=== PATIENT | female | born 1950 | race Caucasian/White ===

== ENCOUNTER 2021-09-29 14:10 | Emergency (ER) | payer MEDICARE, SELFPAY ==
--- NOTE | ~2021-09-29 | XR_ITS ---
EXAMINATION: XR knee RT min 4V DATE: 09/29/2021 15:01 INDICATION: Chronic right knee pain. TECHNIQUE: 5 views of right knee were obtained. COMPARISON: None. FINDINGS: There is lateral subluxation of patella. No fracture. There is severe osteoarthritis of pat ellofemoral compartment and mild osteoarthritis of medial and lateral compartments. There is chondroc alcinosis of the menisci. No knee joint effusion. IMPRESSION: 1. Severe right knee osteoarthritis. Reviewed, dictated and finalized at location E. T MANAGER
[2021-09-29 14:22] VITALS: BP 172/68; PULSE 77; RESP 20; TEMP 36.8; O2SAT 96
--- NOTE | 2021-09-29 14:44 | ED.EXTPRO ---
HPI - Extremity Problem General Chief complaint: Extremity Problem,Nontraumatic Stated complaint: Right Leg Pain Time Seen by Provider: 09/29/21 14:44 Source: patient and family History of Present Illness HPI Narrative: PATIENT PRESENTS WITH RIGHT KNEE PAIN. PATIENT STATES SHE HAS A HISTORY OF ARTHRITIS. PATIENT WAS GETTING UP OFF OF THE TOILET THIS AM AND FELT A SHARP PAIN IN HER KNEE. NO RECOLLECTION OF INJURY TO KNEE. Related Data Home Medications Medication Instructions Recorded Confirmed calcium carbonate-vitamin D3 [All tablet PO 09/29/21 Day Calcium] diclofenac sodium 75 mg PO BID 09/29/21 09/29/21 fenofibrate 100 mg PO DAILY 09/29/21 09/29/21 fluoxetine 20 mg PO DAILY 09/29/21 09/29/21 hydrochlorothiazide 12.5 mg PO DAILY 09/29/21 09/29/21 irbesartan 300 mg PO DAILY 09/29/21 09/29/21 Allergies Allergy/AdvReac Type Severity Reaction Status Date / Time Sulfa (Sulfonamide Allergy Unknown Verified 09/29/21 14:43 Antibiotics) Review of Systems Review of Systems: CONSTITUTIONAL: Denies fever, chills, or sweats. EYES: Denies visual changes, redness, or discharge. ENT: Denies rhinorrhea, congestion, sore throat, or otalgia. CARDIOVASCULAR: Denies chest pain, palpitations, or edema. RESPIRATORY: Denies cough or dyspnea. GASTROINTESTINAL: Denies abdominal pain, nausea, vomiting, or diarrhea. GENITOURINARY: Denies dysuria or hematuria. SKIN: Denies rash or itching. MUSCULOSKELETAL: Denies back pain, joint pain, or myalgia. NEUROLOGIC: Denies headache, numbness, or weakness. PSYCHIATRIC: Denies anxiety or depression. PMFSH Comments At time of signature, agree with nursing past medical, surgical, social and family history. There is no relevant family history pertinent to the presenting complaint Exam Narrative: GENERAL: Well-appearing, well-nourished, and in no acute distress. HEAD: Normocephalic, atraumatic. EYES: PERRLA and EOMI. ENT: Nares clear, no rhinorrhea or epistaxis. Mucous membranes moist. NECK: Supple. CHEST: Clear to auscultation. No respiratory distress. HEART: Regular rate and rhythm. No murmur heard. Normal peripheral pulses. ABDOMEN: Soft, nontender, nondistended, normal active bowel sounds. EXTREMITIES: Normal range of motion. No edema. SKIN INTACT. NO DEFORMITY. NORMAL ROM, HAS FULL EXTENSION AND FLEXION. COMPARTMENTS SOFT. NEGATIVE ANTERIOR, POSTERIOR DRAWER SIGNS ON TEST. NO CREPITUS. DP PULSE, NORMAL CAPILLARY REFILL MCMURRAYS, PAIN TO RIGHT MEDIAL AND DISTAL KNEE WITH KNEE FLEXION, INTERNAL AND EXTERNAL FOOT ROTATION.NO ERYTHEMA OR INCREASED WARMTH TO CALF. . SKIN: Warm, dry, no rash. NEURO: No focal deficits. Alert and oriented x3. [place] Coma Scale Eye Opening: Spontaneous 4 [place] Coma Scale Motor: Obeys Commands 6 [place] Coma Scale Verbal: Oriented 5 Marvin Coma Scale Total 15 Course Course Level of Care: Express Care Visit Vital Signs Vital signs: Vital Signs Temperature 36.8 C 09/29/21 14:22 Pulse Rate 77 09/29/21 14:22 Respiratory Rate 20 09/29/21 14:22 Blood Pressure 172/68 H 09/29/21 14:22 Pulse Oximetry 96 09/29/21 14:22 Temperature 36.8 C 09/29/21 14:22 Pulse Rate 77 09/29/21 14:22 Respiratory Rate 20 09/29/21 14:22 Blood Pressure 172/68 H 09/29/21 14:22 Pulse Oximetry 96 09/29/21 14:22 Addressed elevated BP today. Today's blood pressure higher than recommended range. Discussed importance of follow -up with PCP and possible skilled nursing effects/cardiovascular events related to HTN. Currently patient denies headache, dizziness, vision changes, CP or shortness of breath. DISCUSSED WITH PATIENT, X-RAY FINDINGS AND THAT X-RAYS WERE NEGATIVE FOR FRACTURE OR DISLOCATIONS. X-RAYS CANNOT RULE OUT TENDON, LIGAMENT, OR SOFT TISSUE STRUCTURE INJURIES AND IF SYMPTOMS PERSIST OR WORSEN, FURTHER EVALUATION MAY BE WARRANTED FOR POTENTIAL IMAGING. ADVISED REST, ICE, COMPRESSION, AND ELEVATION. IF PRESCRIBED ANY MEDICATIONS, TAKE DIRECTED. IF P
== END 2021-09-29 15:25 | disposition home or self-care (01) ==
PROVIDERS: Emergency Provider Nurse Practitioner Family; PCP Internal Medicine
DX: S83.91XA Sprain of unspecified site of right knee, initial encounter (principal); X58.XXXA Exposure to other specified factors, initial encounter; S86.811A Strain of other muscle(s) and tendon(s) at lower leg level, right leg, initial encounter; M17.11 Unilateral primary osteoarthritis, right knee; E78.00 Pure hypercholesterolemia, unspecified; I10 Essential (primary) hypertension
CPT/HCPCS: 73564; 99213; G0463

== ENCOUNTER → 2022-10-02 11:10 | Outpatient (CLI) | payer MEDICARE, SELFPAY ==
--- NOTE | ~2022-10-02 | XR_ITS ---
EXAMINATION: XR lumbar spine min 4V DATE: 10/02/2022 12:11 INDICATION: Generalized low back pain TECHNIQUE: Anteroposterior, lateral, and bilateral oblique views of the lumbar spine, and cone-down l ateral view of the lumbosacral junction were obtained. COMPARISON: None. FINDINGS: There are 27 degrees of lumbar levoscoliosis. Bone alignment is normal. There is no fractur e. There is severe loss of intervertebral disc space height at L2-3 and L3-4 and to moderate loss of intervertebral disc space height at L1-2. Small degenerative osteophytes project from the anterior en dplates of multiple vertebral bodies. There is severe facet joint osteoarthritis of the lower lumbar spine. Calcified atherosclerosis is noted. IMPRESSION: 1. Severe lumbar spondylosis without acute findings. Reviewed, dictated and finalized at location B. ERCIAL ELECTRICIAN
--- NOTE | ~2022-10-02 | XR_ITS ---
XR knee RT min 4V 10/02/2022 12:12 Indication: Right knee pain Procedure: 4 views right knee Comparison: 09/29/2021 Findings: There is tricompartment osteoarthritis, most severe in the patellofemoral joint. No acute f racture. There is chondrocalcinosis. Small joint effusion. No foreign bodies. Impression: 1: Tricompartment osteoarthritis, most advanced in the patellofemoral compartment. Reviewed, dictated and finalized at location A. LANCE MODEL Impression: 1: Tricompartment osteoarthritis, most advanced in the patellofemoral compartme nt.
--- NOTE | ~2022-10-02 | XR_ITS ---
XR knee LT min 4V 10/02/2022 12:11 Indication: Left knee pain. Osteoarthritis. Procedure: 4 views left knee Comparison: No prior studies for comparison. Findings: There is tricompartment osteoarthritis. Small joint effusion. No fracture or traumatic mathew lignment. No significant soft tissue abnormality. There are vascular calcifications. Impression: 1: Mild tricompartment osteoarthritis. 2: Small joint effusion. Reviewed, dictated and finalized at location A. TIONS MANAGER Impression: 1: Mild tricompartment osteoarthritis. 2: Small joint effusion.
== END ==
PROVIDERS: PCP Hospitalist; Visit Provider Hospitalist
DX: M47.896 Other spondylosis, lumbar region (principal); M17.0 Bilateral primary osteoarthritis of knee; M25.462 Effusion, left knee
CPT/HCPCS: 72110; 73564